=== PATIENT | female | born 2000 | race Caucasian/White ===

== ENCOUNTER 2024-04-28 09:39 | Emergency (ER) | payer OTHER ==
[~2024-04-28] VITALS: Ht 165.1 cm; Wt 76.5 kg
[2024-04-28] MEDS ORDERED: PRENTAB53 PO (09:53)
[2024-04-28 11:36] LABS: BASO % 0.1 % (0.0-1.0); HEMATOCRIT 36.1 % (36.0-47.0); HEMOGLOBIN 12.4 g/dl (12.0-15.5); LYMPH # 0.5 10^3/uL (1.5-5.0); LYMPH % 5.3 % (24.0-44.0); MEAN CORPUSCULAR HEMOGLOBIN 31.2 pg (27.0-33.0); MEAN CORPUSCULAR HGB CONC 34.3 g/dl (32.0-36.5); MEAN CORPUSCULAR VOLUME 90.9 fl (80.0-96.0); MONO # 0.6 10^3/uL (0.0-0.8); MONO % 6.7 % (2.0-8.0); NEUTROPHILS # 7.5 10^3/uL (1.5-8.5); NEUTROPHILS % 87.7 % (36.0-66.0); PLATELET COUNT, AUTOMATED 258 10^3/uL (150-450); RED BLOOD COUNT 3.97 10^6/uL (4.00-5.40); WHITE BLOOD COUNT 8.5 10^3/uL (4.0-10.0)
[2024-04-28] MEDS: NS 1,000 ML IV ONE (11:55)
[2024-04-28] MEDS: ONDANSETRON 4MG 2ML VIAL IV ONE (11:55)
[2024-04-28 12:03] LABS: ALBUMIN 2.7 G/DL (3.2-5.2); ALKALINE PHOSPHATASE 125 U/L (46-116); ALT/SGPT 19 U/L (7.0-40); AST/SGOT 18 U/L (<34); BILIRUBIN,DIRECT 0.1 MG/DL (<0.4); BILIRUBIN,TOTAL 0.3 MG/DL (0.3-1.2); BLOOD UREA NITROGEN 5 MG/DL (9-23); CALCIUM LEVEL 8.8 MG/DL (8.5-10.1); CARBON DIOXIDE LEVEL 24 MMOL/L (20-31); CHLORIDE LEVEL 103 MMOL/L (98-107); CREATININE FOR GFR 0.47 MG/DL (0.55-1.30); GLOMERULAR FILTRATION RATE > 60.0 (>60); GLUCOSE, FASTING 90 MG/DL (60-100); SODIUM LEVEL 135 MMOL/L (136-145); TOTAL PROTEIN 6.3 G/DL (5.7-8.2)
[2024-04-28 12:20] LABS: HCG, SERUM QUANTITATIVE 25894.1 MIU/ML (<4.2)
[2024-04-28 13:28] LABS: RSV AMPLIFICATION NEGATIVE (NEGATIVE)
[2024-04-28 13:34] VITALS: BP 110/72; TEMP 98; O2SAT 98
[2024-04-28] MEDS ORDERED: ONDA-282 PO (14:07)
== END 2024-04-28 14:20 | disposition home or self-care (01) ==
LOC: M ED 09:39
DX: O21.9 Vomiting of pregnancy, unspecified (principal); O98.512 Other viral diseases complicating pregnancy, second trimester; Z3A.16 16 weeks gestation of pregnancy; Z11.52 Encounter for screening for COVID-19
CPT/HCPCS: 80048; 80076; 81001; 84702; 85025; 87086; 87631; 96361; 96374; 99283; J2405

== ENCOUNTER 2024-06-17 10:03 | Emergency (ER) | payer OTHER ==
[~2024-06-17] VITALS: Ht 162.6 cm; Wt 79.0 kg
[~2024-06-17 10:03] MED LIST: ONDA-282 PO; PRENTAB53 PO
[2024-06-17] MEDS ORDERED: CETI10CH PO (10:08)
[2024-06-17] MEDS ORDERED: PNV,1TAB3 PO (10:08)
[2024-06-17 11:57] LABS: HEMATOCRIT 39.7 % (36.0-47.0); HEMOGLOBIN 13.2 g/dl (12.0-15.5); MEAN CORPUSCULAR HEMOGLOBIN 31.3 pg (27.0-33.0); MEAN CORPUSCULAR HGB CONC 33.2 g/dl (32.0-36.5); MEAN CORPUSCULAR VOLUME 94.1 fl (80.0-96.0); PLATELET COUNT, AUTOMATED 342 10^3/uL (150-450); RED BLOOD COUNT 4.22 10^6/uL (4.00-5.40); WHITE BLOOD COUNT 10.9 10^3/uL (4.0-10.0)
[2024-06-17 12:25] LABS: CK-MB VALUE MASS < 1.0 NG/ML (<3.6)
[2024-06-17 12:26] LABS: THYROID STIMULATING HORMONE 1.022 uIU/ML (0.55-4.78)
[2024-06-17 12:27] LABS: BLOOD UREA NITROGEN 6 MG/DL (9-23); CALCIUM LEVEL 9.4 MG/DL (8.5-10.1); CARBON DIOXIDE LEVEL 26 MMOL/L (20-31); CHLORIDE LEVEL 105 MMOL/L (98-107); CREATININE FOR GFR 0.49 MG/DL (0.55-1.30); GLOMERULAR FILTRATION RATE > 60.0 (>60); GLUCOSE, FASTING 72 MG/DL (60-100); MAGNESIUM LEVEL 1.8 MG/DL (1.8-2.4); POTASSIUM SERUM 4.3 MMOL/L (3.5-5.1); SODIUM LEVEL 137 MMOL/L (136-145)
[2024-06-17 12:29] LABS: FREE T4 0.94 NG/DL (0.89-1.76)
[2024-06-17 12:31] LABS: CPK CREATINE PHOSPHOKINASE 36 U/L (34-145); MB/CK RELATIVE INDEX 2.77 (< OR =4)
[2024-06-17] MEDS: NS 1,000 ML IV ONE (12:59)
[2024-06-17 13:55] LABS: APPEARANCE, URINE HAZY (CLEAR); BACTERIA, URINE AUTO 3+ (NEGATIVE); BILIRUBIN, URINE AUTO NEGATIVE (NEGATIVE); BLOOD, URINE BLOOD NEGATIVE (NEGATIVE); COLOR, URINE YELLOW (YELLOW); GLUCOSE, URINE (UA) AUTO NEGATIVE (NEGATIVE); KETONE, URINE AUTO NEGATIVE (NEGATIVE); LEUKOCYTE ESTERASE, URINE AUTO 3+ (NEGATIVE); NITRITE, URINE AUTO NEGATIVE (NEGATIVE); PROTEIN, URINE AUTO NEGATIVE (NEGATIVE); RBC, URINE AUTO 2 /HPF (0-3); SPECIFIC GRAVITY URINE AUTO 1.006 (1.002-1.035); SQUAMOUS EPITHELIAL CELL UR AU 4 /HPF (0-6); UROBILINOGEN, URINE AUTO 0.2 mg/dL (0.0-2.0); WBC, URINE AUTO 10 /HPF (0-3)
[2024-06-17] MEDS ORDERED: HOLTER MONITOR XX (14:48)
[2024-06-17 14:58] VITALS: BP 113/56; TEMP 97.8; O2SAT 100
== END 2024-06-17 15:04 | disposition home or self-care (01) ==
LOC: M ED 10:03
DX: R00.2 Palpitations (principal); Z79.899 Other long term (current) drug therapy

== ENCOUNTER → 2024-06-22 | Outpatient (CLI) | payer OTHER ==
[~2024-06-22] MED LIST changes: +CETI10CH PO; +HOLTER MONITOR XX; +PNV,1TAB3 PO
== END ==
LOC: M EKG 08:19
PROVIDERS: ATTEND Physician Assistant Medical
DX: R00.2 Palpitations (principal)

== ENCOUNTER 2024-08-12 12:12 | Outpatient (CLI) | payer OTHER ==
[~2024-08-12] VITALS: Ht 165.1 cm; Wt 81.5 kg
[2024-08-12] MEDS ORDERED: TUMS500C PO (12:24)
[2024-08-12 12:33] VITALS: BP 106/64; O2SAT 95
[2024-08-12] MEDS ORDERED: HOME MED LIST COMPLETE! XX SCH (12:50)
== END 2024-08-12 13:10 | disposition home or self-care (01) ==
LOC: M LDO 12:12
PROVIDERS: ATTEND Advanced Practice Midwife
DX: O26.893 Other specified pregnancy related conditions, third trimester (principal); R10.11 Right upper quadrant pain; O98.53 Other viral diseases complicating the puerperium; B00.9 Herpesviral infection, unspecified; Z3A.31 31 weeks gestation of pregnancy
CPT/HCPCS: 59025; G0463

== ENCOUNTER → 2024-09-07 | Outpatient (REF) | payer OTHER ==
[~2024-09-07] MED LIST changes: +TUMS500C PO
== END ==
LOC: M SFHCWAGY 17:01
PROVIDERS: ATTEND Specialist
DX: Z36.85 Encounter for antenatal screening for Streptococcus B (principal); Z3A.36 36 weeks gestation of pregnancy

== ENCOUNTER → 2024-09-07 | Outpatient (CLI) | payer OTHER | LOC: M WHC 10:39 | PROVIDERS: ATTEND Obstetrics & Gynecology | DX: O26.843 Uterine size-date discrepancy, third trimester (principal); Z3A.34 34 weeks gestation of pregnancy; O98.313 Other infections with a predominantly sexual mode of transmission complicating pregnancy, third trimester; A60.09 Herpesviral infection of other urogenital tract | CPT/HCPCS: 76811; 76820; 87081; 87186; G0463 ==

== ENCOUNTER 2024-10-02 19:46 | Outpatient (CLI) | payer OTHER ==
[~2024-10-02] VITALS: Ht 165.1 cm; Wt 84.6 kg
[2024-10-02 20:12] VITALS: BP 114/73
== END 2024-10-02 22:38 | disposition left against medical advice (07) ==
LOC: M LDO 19:46
PROVIDERS: ATTEND Advanced Practice Midwife
DX: O99.419 Diseases of the circulatory system complicating pregnancy, unspecified trimester (principal); Z53.21 Procedure and treatment not carried out due to patient leaving prior to being seen by health care provider

== ENCOUNTER 2024-10-09 11:00 | Inpatient (IN) | payer OTHER ==
[~2024-10-09] VITALS: Ht 165.1 cm; Wt 84.4 kg
[2024-10-09 11:14] VITALS: BP 124/78
[2024-10-09] MEDS ORDERED: VALT1TAB PO (11:18)
[2024-10-09 11:56] LABS: HEMATOCRIT 38.7 % (36.0-47.0); HEMOGLOBIN 13.4 g/dl (12.0-15.5); MEAN CORPUSCULAR HEMOGLOBIN 31.2 pg (27.0-33.0); MEAN CORPUSCULAR HGB CONC 34.6 g/dl (32.0-36.5); PLATELET COUNT, AUTOMATED 305 10^3/uL (150-450); WHITE BLOOD COUNT 8.8 10^3/uL (4.0-10.0)
[2024-10-09] MEDS ORDERED: PENICILLIN G POTASSIUM 5 MU IV 5 MU in DEXTROSE 5% (D5W) MINI-BAG PLU 100 ML IV STA (12:59)
[2024-10-09] MEDS ORDERED: TRANEXAMIC ACID INJection 1,000 MG in NS 100 ML IV PRN (13:00)
[2024-10-09] MEDS ORDERED: METHYLERGONOVINE MALEATE 0.2MG/ML 1ML VIAL IM PRN (13:00)
[2024-10-09] MEDS ORDERED: LIDOCAINE 1% MDV 20ML VIAL INFIL PRN (13:00)
[2024-10-09] MEDS ORDERED: CARBOPROST TROMETHAMINE 250 MCG/ML AMP IM PRN (13:00)
[2024-10-09] MEDS ORDERED: OXYTOCIN INJ 10UNITS/ML 1ML VIAL IM PRN (13:00)
[2024-10-09] MEDS ORDERED: OXYTOCIN DRIP 30 UNITS in IV 1 EA IV PRN (13:00)
[2024-10-09] MEDS: miSOPROStol 50MCG 1/2 TABLET PO SCH (13:13)
[2024-10-09 13:15] VITALS: BP 111/65
[2024-10-09 15:16] VITALS: BP 114/71; TEMP 98.3
[2024-10-09] MEDS ORDERED: PEN G POT 3,000,000 UNIT/50 ML 3,000,000 UNIT in IV 1 EA IV SCH (17:00)
[2024-10-09 20:53] VITALS: BP 119/77
[2024-10-10] VITALS (9 sets, daily range): BP systolic 101–113; BP diastolic 56–74; O2SAT 98–99
[2024-10-10] MEDS ORDERED: LR 1,000 ML IV SCH (02:45)
[2024-10-10] MEDS: PROMETHAZINE 25MG/ML 1ML VIAL IV ONE (03:03)
[2024-10-10] MEDS: BUTORPHANOL 2 MG/ML 1ML VIAL IV ONE (03:03)
[2024-10-10] MEDS: PENICILLIN G POTASSIUM 5 MU IV 5 MU in DEXTROSE 5% (D5W) MINI-BAG PLU 100 ML IV STA (03:10)
[2024-10-10] MEDS: OXYTOCIN DRIP 30 UNITS in IV 1 EA IV SCH (03:20)
[2024-10-10] MEDS ORDERED: LR 500 ML IV PRN (04:55)
[2024-10-10] MEDS ORDERED: EPIDURAL/PCA KEYS XX PRN (04:55)
[2024-10-10] MEDS ORDERED: diphenhydrAMINE 50MG/ML VIAL IV PRN (04:55)
[2024-10-10] MEDS ORDERED: ePHEDrine SULFATE 25 MG/5 ML(5MG/ML) SYRINGE IVP PRN (04:55)
[2024-10-10] MEDS ORDERED: NALOXONE INJ 0.4MG/1ML VIAL IV PRN (04:55)
[2024-10-10] MEDS: FENTANYL/ROPIVACAINE/NACL BAG 100 ML EPIDURAL SCH (05:26)
[2024-10-10] MEDS: ONDANSETRON 4MG 2ML VIAL IV PRN (06:11)
[2024-10-10] MEDS: PEN G POT 3,000,000 UNIT/50 ML 3,000,000 UNIT in IV 1 EA IV SCH (07:04)
[2024-10-10] MEDS ORDERED: METHYLERGONOVINE MALEATE 0.2 MG TAB PO PRN (08:30)
[2024-10-10] MEDS ORDERED: RHOGAM 300MCG (1500IU) INJ IM SCH (08:30)
[2024-10-10] MEDS: PRENATAL VITAMINS CHEWABLE TABLET PO SCH (11:17)
[2024-10-10] MEDS: IBUPROFEN 800 MG TAB PO PRN (15:30)
[2024-10-10] MEDS: DIBUCAINE 1% OINTMENT 30GM TOP PRN (20:04)
[2024-10-10] MEDS: ACETAMINOPHEN 325 MG TAB PO PRN (23:24)
[2024-10-11 05:52] VITALS: BP 96/57; O2SAT 98
[2024-10-11] MEDS: DOCUSATE SODIUM 100MG CAPSULE PO PRN (08:17)
[2024-10-11] MEDS: ACETAMINOPHEN 500 MG TAB PO PRN (14:30)
[2024-10-11 18:00] VITALS: BP 119/74; O2SAT 97
[2024-10-11] MEDS: IBUPROFEN 600MG TAB PO PRN (19:48)
[2024-10-12 05:50] VITALS: BP 113/65; O2SAT 97
[2024-10-12] MEDS ORDERED: ACET-683 PO (08:49)
[2024-10-12] MEDS ORDERED: IBUP80TA PO (08:49)
[2024-10-12] MEDS ORDERED: MEASLES,MUMPS,RUBELLA VACCINE INJ (MMR-II) SC.IMMUN ONE (09:00)
== END 2024-10-12 12:00 | disposition home or self-care (01) | DRG 807 ==
LOC: M LDI 11:00 → M OBS 10-10 13:15
PROVIDERS: ADMIT Advanced Practice Midwife; ATTEND Advanced Practice Midwife
PROC: 3E0P7GC Introduction of Other Therapeutic Substance into Female Reproductive, Via Natural or Artificial Opening (ICD-10-PCS; 2024-10-09)
PROC: 10E0XZZ Delivery of Products of Conception, External Approach (ICD-10-PCS; principal; 2024-10-10)
PROC: 0KQM0ZZ Repair Perineum Muscle, Open Approach (ICD-10-PCS; 2024-10-10)
DX: O71.4 Obstetric high vaginal laceration alone (principal); Z37.0 Single live birth; Z3A.40 40 weeks gestation of pregnancy; O99.824 Streptococcus B carrier state complicating childbirth; O69.81X0 Labor and delivery complicated by cord around neck, without compression, not applicable or unspecified

== ENCOUNTER → 2025-07-01 | Outpatient (REF) | payer OTHER ==
[~2025-07-01] MED LIST changes: +ACET-683 PO; +IBUP80TA PO; +VALT1TAB PO
== END ==
LOC: M PLALAB 15:26
PROVIDERS: ATTEND Advanced Practice Midwife
DX: Z53.9 Procedure and treatment not carried out, unspecified reason (principal)

== ENCOUNTER → 2025-07-05 | Outpatient (CLI) | payer OTHER ==
[2025-07-05 15:20] LABS: PLATELET COUNT, AUTOMATED 344 10^3/uL (150-450)
[2025-07-05 15:59] LABS: HIV 1&2 SCREEN NEGATIVE (NEGATIVE)
[2025-07-05 16:07] LABS: HEPATITIS C VIRUS ABY INDEX < 0.02 INDEX (<0.8)
[2025-07-05 16:34] LABS: Trichomonas vaginalis (AMP) NOT DETECTED (NEGATIVE)
[2025-07-05 16:57] LABS: GC DNA AMPLIFICATION NEGATIVE (NEGATIVE)
== END ==
LOC: M PLALAB 12:27
PROVIDERS: ATTEND Advanced Practice Midwife
DX: Z34.81 Encounter for supervision of other normal pregnancy, first trimester (principal)

== ENCOUNTER → 2025-09-10 | Outpatient (CLI) | payer OTHER | LOC: M WHC 10:05 | PROVIDERS: ATTEND Obstetrics & Gynecology | DX: Z34.82 Encounter for supervision of other normal pregnancy, second trimester (principal); Z3A.19 19 weeks gestation of pregnancy ==

== ENCOUNTER → 2025-10-29 | Outpatient (CLI) | payer OTHER ==
[2025-10-29 11:33] LABS: PLATELET COUNT, AUTOMATED 313 10^3/uL (150-450)
[2025-10-29 11:52] LABS: GLUCOSE CHALLENGE TEST 1 HOUR 85 MG/DL (LESS THAN 140)
[2025-10-29 12:24] LABS: HIV 1&2 SCREEN NEGATIVE (NEGATIVE)
[2025-10-29 12:32] LABS: HEPATITIS C VIRUS ABY INDEX < 0.02 INDEX (<0.8)
== END ==
LOC: M LAB 09:19
PROVIDERS: ATTEND Obstetrics & Gynecology
DX: Z34.92 Encounter for supervision of normal pregnancy, unspecified, second trimester (principal)

== ENCOUNTER → 2025-10-30 | Outpatient (REF) | payer OTHER ==
[2025-10-30 11:53] LABS: Trichomonas vaginalis (AMP) NOT DETECTED (NEGATIVE)
[2025-10-30 12:17] LABS: GC DNA AMPLIFICATION NEGATIVE (NEGATIVE)
== END ==
LOC: M LAB REF 10:26
PROVIDERS: ATTEND Obstetrics & Gynecology
DX: Z34.92 Encounter for supervision of normal pregnancy, unspecified, second trimester (principal)

== ENCOUNTER → 2025-11-30 | Outpatient (CLI) | payer OTHER ==
[2025-11-30 11:42] LABS: ALT/SGPT < 9 U/L (7.0-40); AST/SGOT 15 U/L (<34)
== END ==
LOC: M PLALAB 08:32
PROVIDERS: ATTEND Specialist
DX: O26.643 Intrahepatic cholestasis of pregnancy, third trimester (principal)